=== PATIENT | male | born 1950 | race Caucasian/White ===

== ENCOUNTER → 2018-01-08 | Outpatient (CLI) | payer MEDICARE, OTHER | LOC: M RAD 11:15 | DX: I65.23 Occlusion and stenosis of bilateral carotid arteries (principal) | CPT/HCPCS: 93880 ==

== ENCOUNTER → 2018-08-21 | Outpatient (CLI) | payer MEDICARE, OTHER ==
--- NOTE | 2018-08-21 14:58 | REP ---
Clinical: Left lower extremity atherosclerotic disease. Technique: Real time aquino scale and color Doppler evaluation of the left lower extremity arterial vasculature using linear high frequency transducer. Findings: The ankle to brachial index of the left lower extremity is 0.77. Color Doppler interrogation demonstrates predominantly biphasic wave patterns from the proximal superficial femoral vein distally with triphasic wave pattern at the common femoral artery and monophasic wave pattern at the profunda. Aquino scale images demonstrate moderate to severe atheromatous plaquing throughout the visualized left lower extremity. PSV(cm/sec) LEFT Common femoral artery 172.2 cm/sec Profunda femoris artery 326 cm/s Proximal superficial femoral artery 315.5 cm/s Mid superficial femoral artery 120.3 cm/s Distal superficial femoral artery 77.5 cm/s Popliteal artery 86.1 cm/s Proximal JOSE F 56.7 cm/s Tibioperoneal trunk 64.2 cm/s Proximal NONPROFIT FUNDRAISER 48.0 cm/s Distal NONPROFIT FUNDRAISER 27.1 cm/s Distal JOSE F 25.7 cm/s Impression: Findings are consistent with moderate to significant atherosclerotic disease throughout the left lower extremity including suspected areas of stenosis at the profunda femoris and proximal superficial femoral artery. Electronically Signed by Colby Bautista MD 08/21/2018 02:49 P
== END ==
LOC: M RAD 12:31
PROVIDERS: ATTEND Surgery Vascular Surgery
DX: I70.8 Atherosclerosis of other arteries (principal); I65.23 Occlusion and stenosis of bilateral carotid arteries; R09.89 Other specified symptoms and signs involving the circulatory and respiratory systems

== ENCOUNTER → 2019-03-26 | Outpatient (CLI) | payer MEDICARE, OTHER ==
--- NOTE | 2019-03-26 11:10 | REP ---
DUPLEX CAROTID SONOGRAPHY: HISTORY: Atherosclerosis of the [place] arteries. Stenosis. Comparison study August 21, 2018. FINDINGS: Antegrade flow was observed in both vertebral arteries. RIGHT CAROTID: There is mild to moderate mixed plaquing in the common carotid artery segment on the right. Extensive mixed plaquing is seen in the bulb and proximal ICA on the right. Color flow and spectral Doppler interrogation demonstrate minimally elevated systolic velocity in the external carotid artery. Minimally elevated systolic velocities in the ICA. Velocity Chart Right Carotid: PSV EDV Right CCA 117 cm/s Right ICA 144 cm/s 30 cm/s Right ECA 169 cm/s Right ICA/CCA ratio normal 1.2. IMPRESSION: Less than 50% category narrowing in the right ICA by Doppler velocity criteria, probably near the upper end of this range. Velocities are not significantly increased on the right compared to the prior study. LEFT CAROTID: The left common carotid artery shows mild to moderate mixed plaquing. There is extensive mixed plaquing in the bulb and proximal ICA on two-dimensional scanning on the left side. Systolic velocities are increased in the external carotid artery. Borderline in the ICA. Velocity Chart Left Carotid: PSV EDV Left CCA 133 cm/s Left ICA 124 cm/s 33 cm/s Left ECA 329 cm/s Left ICA/CCA ratio normal 0.9. IMPRESSION: Less than 50% category narrowing in the left ICA by Doppler velocity criteria. Probably near the upper end of this range. ICA velocities are essentially unchanged. The external carotid artery peak systolic flow velocity has increased since the prior study. Electronically Signed by Anjum Phan MD 03/26/2019 01:53 P
--- NOTE | 2019-03-26 11:53 | REP ---
Bilateral lower extremity arterial duplex ultrasound: Right lower extremity: Brachial peak systole: 194 mmHg. Dorsalis pedis peak systole: 150 mmHg. CELL CHANGER peak systole: 142 mmHg. GENNA: 0.78. Peak Systolic Phasicity Velocity PATHOLOGY COLLECTOR 72 biphasic Profunda 83.1 triphasic SFA prox 94 biphasic SFA mid 88.2 biphasic SFA dist 59.4 biphasic Pop 40.5 69.4 biphasic JOSE F prox 31.4 biphasic Tib/P tr 47.4 biphasic CELL CHANGER pr 32.2 biphasic CELL CHANGER dst 22.8 biphasic JOSE F dst 19.1 biphasic Left lower extremity: Brachial peak systole: 120 mmHg. Dorsalis pedis peak systole: 150 mmHg. CELL CHANGER peak systole: 170 mmHg. GENNA: 0.88. Peak Systolic Phasicity Velocity PATHOLOGY COLLECTOR 158 241 biphasic Profunda 377 biphasic SFA prox 265 389 biphasic SFA mid 147 biphasic SFA dist 51 biphasic Pop 70 biphasic JOSE F prox 26.7 biphasic Tib/P tr 72 point biphasic CELL CHANGER pr 62.8 biphasic CELL CHANGER dst 42.1 biphasic JOSE F dst 30.4 biphasic Impression: There is a significant atheromatous plaque bilaterally. Increased flow velocity and biphasic wave forms are present in the left PATHOLOGY COLLECTOR, left profunda left SFA compatible with stenoses. There is a 74 ml difference in the brachial peak systole. The right brachial peak systole is higher than the left. This raises the possibility of a stenosis proximal to the left brachial artery. Electronically Signed by Jordi Bacon MD 03/26/2019 11:44 A
== END ==
LOC: M RAD 08:19
PROVIDERS: ATTEND Physician Assistant
DX: I70.223 Atherosclerosis of native arteries of extremities with rest pain, bilateral legs (principal); I65.23 Occlusion and stenosis of bilateral carotid arteries

== ENCOUNTER → 2020-03-27 | Outpatient (CLI) | payer MEDICARE, OTHER ==
--- NOTE | 2020-03-27 15:04 | REP ---
INDICATION: UNSP ATHSCL [place] ARTERIES OF BILAT LOWER LEGS. COMPARISON: March 26, 2019.. TECHNIQUE: Bilateral lower extremity arterial Doppler ultrasound: FINDINGS: Ankle brachial indices are relatively normal measured at 0.97 on the right and 1.06 on the left. There is moderate to large amount of plaque noted bilaterally. Monophasic arterial waveform is observed in the profundal femoral artery on the right and the left. Otherwise, waveforms are predominantly biphasic in both lower extremities. There is evidence of stenotic flow velocities at the origin of the superficial femoral artery on the left. Right lower extremity arterial Doppler velocity chart: Right FILTERATION OPERATOR PSV 108 cm/S Profundal 92 Proximal SFA 125 Mid SFA 120 Distal SFA 72 Popliteal 58 Proximal JOSE F 49 Tibial-peroneal trunk 60 Proximal SSIS ARCHITECT 48 Distal SSIS ARCHITECT 29 Distal JOSE F 43 Left lower extremity arterial Doppler velocity chart: Left FILTERATION OPERATOR PSV 161 cm/S Profundal 200 Proximal SFA 320 Mid SFA 93 Distal SFA 52 Popliteal 64 Proximal JOSE F 48 Tibial-peroneal trunk 47 Proximal SSIS ARCHITECT 34 Distal SSIS ARCHITECT 28 Distal JOSE F 34 IMPRESSION: Moderate to large amount of plaque bilaterally. Stenotic flow velocities in the proximal SFA on the left. Monophasic waveforms in the profundal femoral arteries bilaterally. <Electronically signed by Steve Phan > 03/27/20 1500
--- NOTE | 2020-03-27 15:18 | REP ---
INDICATION: OCCLUCION AND STENOSIS OF BILAT. CAROTID ARTERIES COMPARISON: March 26, 2019.. TECHNIQUE: Real-time ultrasound evaluation and duplex Doppler interrogation of the extracranial carotid vasculature is performed. FINDINGS: Antegrade flow is observed in both vertebral arteries. Right carotid: The right common carotid artery shows diffuse intimal thickening but is otherwise unremarkable. There [id number] mixed plaquing in the right carotid bulb and proximal ICA on two-dimensional scanning. Color flow and spectral Doppler interrogation show mildly stenotic ICA flow velocity. Stenotic flow velocities are observed in the ECA on the right side as well.. Velocity chart right carotid: Right CCA PSV: 99.7 cm/S Right ICA PSV: 139 cm/S Right ICA EDV: 33 cm/S Right ECA PSV: 209 cm/S Right ICA/CCA ratio: 2.3 Left carotid: The left common carotid artery shows diffuse intimal thickening but is otherwise unremarkable. There is moderate to marked mixed plaquing in the left carotid bulb and proximal ICA on two-dimensional scanning. Color flow and spectral Doppler interrogation shows us stenotic flow velocity mild in degree in the left ICA.. Velocity chart left carotid: Left CCA PSV: 122.8 cm/S Left ICA PSV: 145 cm/S Left ICA EDV: 31 cm/S Left ECA PSV: 144 cm/S Left ICA/CCA ratio: 2.2 IMPRESSION: 50-69% category narrowing in the right internal carotid artery by Doppler velocity criteria. 50-69% category narrowing in the left ICA by Doppler velocity criteria. Doppler ICA velocities on the left are slightly higher than on the prior study. <Electronically signed by Steve Phan > 03/27/20 [id number]
== END ==
LOC: M RAD 12:15
PROVIDERS: ATTEND Physician Assistant
DX: I70.203 Unspecified atherosclerosis of native arteries of extremities, bilateral legs (principal); I65.23 Occlusion and stenosis of bilateral carotid arteries

== ENCOUNTER 2020-05-24 07:36 | Day surgery (SDC) | payer MEDICARE, OTHER ==
[~2020-05-24] VITALS: Ht 180.3 cm; Wt 80.3 kg
[~2020-05-24 07:36] MED LIST: ALBUTEROL SULFATE 2.5 MG/0.5 ML INH NEB SOLN INH ONE; AMLO1TAB25 PO; ANOR1AER INH; AZEL1SPR3 NARES; CELE1CAP9 PO; CETACAINE SPRAY 5GM As Ordered ONE; CLOP75TA2 PO; EPINEPHrine 1MG/10ML SYRINGE 1.5IN As Ordered ONE; FLUTISP NARES; LEXA5TAB13 PO; LIDOCAINE 1% MDV 20ML VIAL As Ordered ONE; LIDOCAINE 4% INJ 5ML AMP INH ONE; LIDOCAINE VISCOUS 2% SOLN 15ML UDC As Ordered ONE; LR 1,000 ML IV ONE; MONT5TAB2 PO; OMEP-218 PO; ONDA8TAB10 PO; PRAV80TA2 PO; PROAAER10 INH; THROMBIN SOLN 5,000 UNITS VIAL As Ordered ONE; TOPR50TA PO; VENL75CA47 PO
[2020-05-24] MEDS ORDERED: propofoL 200 MG/20 ML VIAL As Ordered ONE (09:44)
[2020-05-24] MEDS ORDERED: fentaNYL 100 MCG/2 ML INJECTION (J3010) As Ordered ONE ×2 (09:44→09:53)
[2020-05-24] MEDS ORDERED: LIDOCAINE 2% 100MG/5ML SDV (FOR ANES.) As Ordered ONE (09:44)
[2020-05-24] MEDS ORDERED: ROCURONIUM BROMIDE 50 MG/5 ML VIAL As Ordered ONE (09:44)
[2020-05-24] MEDS ORDERED: MIDAZOLAM INJ 2MG/2ML VIAL (J2250 PER 1MG) As Ordered ONE (09:44)
[2020-05-24] MEDS ORDERED: dexameTHASONE 4 MG/ML 1ML VIAL (J1100 PER 1MG) As Ordered ONE (09:44)
[2020-05-24] MEDS ORDERED: ONDANSETRON 4MG/2ML VIAL As Ordered ONE (09:44)
[2020-05-24] MEDS ORDERED: METOPROLOL 5 MG/5 ML VIAL As Ordered ONE (09:44)
[2020-05-24] MEDS ORDERED: ePHEDrine SULFATE 25 MG/5 ML(5MG/ML) SYRINGE As Ordered ONE (09:45)
[2020-05-24] MEDS ORDERED: SUGAMMADEX SODIUM 500 MG/5 ML VIAL (BRIDION) As Ordered ONE (09:55)
[2020-05-24] MEDS ORDERED: PHENYLephrine HCL 500 MCG/5 ML (100MCG/ML) SYRINGE (J2370) As Ordered ONE (09:58)
--- NOTE | 2020-05-24 10:57 | REP ---
INDICATION: postop COMPARISON: None. TECHNIQUE: Portable AP view of the chest FINDINGS: Triangular opacity in the right upper hemithorax with right-sided volume loss and poor visualization to the right mainstem bronchus suggests right upper lobe collapse. Correlation is required. No prior examinations are available for comparison. The visualized bilateral aerated lung thompson are relatively clear. The cardiac silhouette is normal. [id number] identified with tip in the SVC. IMPRESSION: Findings suspicious for right upper lobe collapse. <Electronically signed by Colby Bautista > 05/24/20 [id number]
[2020-05-24] MEDS ORDERED: PERCOCET 5MG/325MG TAB PO PRN (11:00)
[2020-05-24] MEDS ORDERED: LR 1,000 ML IV SCH (11:00)
[2020-05-24] MEDS ORDERED: fentaNYL 100 MCG/2 ML INJECTION (J3010) IV PRN (11:00)
[2020-05-24] MEDS ORDERED: ONDANSETRON 4MG/2ML VIAL IV PRN (11:00)
[2020-05-24] MEDS ORDERED: METOCLOPRAMIDE INJ 10MG/2ML VIAL (J2765 PER 1) IV PRN (11:00)
--- NOTE | 2020-05-24 11:00 | RO ---
OPERATIVE NOTE DATE OF OPERATION: 05/24/2020 PREOPERATIVE DIAGNOSIS: Abnormal chest CT, right upper lobe abnormality. POSTOPERATIVE DIAGNOSIS: Abnormal chest CT, right upper lobe abnormality with findings of an endobronchial mucosal abnormality on the left. FINDINGS: Collapsed airways in the right upper lobe, endobronchial lesion on the left. PROCEDURE: Bronchoscopy with endobronchial ultrasound. PROCEDURALIST: Wayne Espino D.O. STATISTICAL ASSISTANT: None. ANESTHESIA: General. Please refer to their records for details. SPECIMEN(S): 1. Left upper lobe endobronchial biopsy. 2. Right upper lobe fine needle aspiration. 3. Right upper lobe bronchoalveolar lavage. ESTIMATED BLOOD LOSS: Less than 10 mL. COMPLICATIONS: None observed. DRAINS: None. DESCRIPTION OF PROCEDURE: After informed consent was reviewed with the patient in the preoperative area, he was brought back to OR 6. The patient was intubated and after anesthesia intubated with an 8.5 endotracheal tube, the case was handed over to me. A time-out was performed with two patient identifiers, identifying correct site, correct procedure, and correlating with name and date of of the CT scan in the room. Cetacaine spray was then used to anesthetize the airway and provide lubrication for the bronchoscope. The 1T190 bronchoscope was then inserted into the airways. Trachea was sharp. There was mucous in both airways. No significant thick mucous or evidence of bleeding. Right and left mainstem bronchi were normal. At the takeoff of the right upper lobe, there were abnormalities of the mucosa with hypervascularity. There were two anterior segments, one anterior apical segment and one anterior lower anterior segment, of the right upper lobe. The apical anterior segment was the most collapsed and extrinsically compressed. The low anterior was partially extrinsically compressed. There was splaying in between the airways. The posterior and the more apical posterior segment were patent without endobronchial lesions. The mainstem bronchus was normal. RB4 through 10 was normal. There were no endobronchial lesions and minimal amounts of mucous. Possible aspirated material white rice-looking material in the right lower lobe. The left mainstem was normal. At the takeoff of the left upper lobe, there was minimal mucosal abnormality on the medial surface just before the takeoff of the lingula. This was biopsied and had some significant bleeding; therefore, only a few biopsies were obtained. Epinephrine was applied to this area and bleeding stopped. LB1 through 10 were inspected without endobronchial lesions and minimal amounts of mucous. I then removed the 1T190 scope and proceeded with endobronchial ultrasound. It was fairly difficult to flex the endobronchial ultrasound up into the right upper lobe. Biopsies were taken of the most anterior portion of the ultrasounded abnormality. The abnormality was large more than a few centimeters. Because of the flexion of the scope, the needle actually went through the sheath externally. Therefore, I stopped using EBUS, removed the endobronchial ultrasound scope, and went to the 1T190 scope and used a Petcube FNA needle. Samples were taken of the splayed spur between the two anterior segments. Also, took FNA samples of the splayed right apical segment, the most anterior portion of this. After adequate sampling, procedure was stopped. There was some hemorrhage in the right upper lobe FNAs. No further epinephrine was required, however. Hemostasis was assured. BAL was performed of the anterior segment of the right upper lobe. After sampling all hemostasis was assured and the endobronchial ultrasound was removed. The balloon was present on the endobronchial ultrasound. There were no observed complications.
[2020-05-24 11:30] VITALS: BP 123/58
--- NOTE | 2020-05-24 23:53 | ECGEPIP ---
[facility] Test Date: 2020-05-24 Pat Name: CIRA HINES Department: Room: - Gender: Male Manager Retirement: SAL : 1950 Requested By: Dalton Cruz Order Number: [id number] Reading MD: Keaton Flaherty Measurements Intervals [place] Rate: 78 P: 70 LA: 172 QRS: 66 QRSD: 106 T: 90 QT: 414 QTc: 472 Interpretive Statements SINUS RHYTHM NONSPECIFIC T-WAVE ABNORMALITY NONSPECIFIC ST/T ABNORMALITY No prior tracing in the system Electronically Signed on 05-24-2020 23:53:14 EST by Keaton Flaherty
== END 2020-05-24 12:10 | disposition home or self-care (01) ==
LOC: M SDC 07:36
PROVIDERS: ATTEND Internal Medicine Pulmonary Disease
DX: C34.11 Malignant neoplasm of upper lobe, right bronchus or lung (principal); J44.9 Chronic obstructive pulmonary disease, unspecified; R79.1 Abnormal coagulation profile; I25.10 Atherosclerotic heart disease of native coronary artery without angina pectoris; I25.2 Old myocardial infarction; E78.49 Other hyperlipidemia; I10 Essential (primary) hypertension; C61 Malignant neoplasm of prostate; C15.4 Malignant neoplasm of middle third of esophagus; E55.9 Vitamin D deficiency, unspecified; Z79.01 Long term (current) use of anticoagulants; Z79.82 Long term (current) use of aspirin; Z79.899 Other long term (current) drug therapy
CPT/HCPCS: 31624; 31629; 31654; 71045; 87070; 87102; 87116; 87205; 87206; 88108; 88173; 88305; 88313; 88342; 93005; J1100; J2250; J2370; J2405; J3010